=== PATIENT | male | born 1990 ===

== ENCOUNTER 2017-02-21 22:21 | Emergency (ER) | payer OTHER ==
[~2017-02-21] VITALS: Ht 177.8 cm; Wt 81.9 kg
[2017-02-21 22:23] VITALS: TEMP 36.8; Ht 177.8 cm; Wt 81.9 kg
[2017-02-21] MEDS ORDERED: KETOROLAC TROMETHAMINE 30 MG/ML VIAL IV STA (22:38)
[2017-02-21 23:04] LABS: BASO % 0.1 %; BASO ABS # 0.02 K/uL (0-0.2); COMPLETE YES; EOS % 1.7 %; HEMATOCRIT 45.5 % (42-52); IG% 0.3 %; LYMPH % 30.7 %; LYMPH ABS # 4.43 K/uL (1.2-3.4); MEAN CORPUSCULAR HEMOGLOBIN 29.8 pg (25-34); MEAN CORPUSCULAR HGB CONC 34.3 g/dl (32-36); MEAN PLATELET VOLUME 9.7 fL (7.4-10.4); MONO % 8.1 %; NEUT % 59.1 %; PLATELET COUNT 257 K/uL (130-400); RED BLOOD COUNT 5.23 M/uL (4.7-6.1); WHITE BLOOD COUNT 14.45 K/uL (4.8-10.8)
[2017-02-21 23:11] LABS: URINE APPEARANCE CLEAR (CLEAR); URINE BILIRUBIN NEG (NEG); URINE COLOR YELLOW; URINE NITRITE NEG (NEG); URINE SPECIFIC GRAVITY 1.019 (1.000-1.030); UROBILINOGEN NEG (NEG); ZZUR CULT IF INDIC CLEAN CATCH NO
[2017-02-21 23:20] LABS: MANUAL MICROSCOPIC REQUIRED? NO; REVIEW REQ? NO
[2017-02-21 23:21] LABS: BUN/CREATININE RATIO 8.9 (10-20); CALCIUM 9.6 mg/dl (8.5-10.1); CREATININE 1.1 mg/dl (0.60-1.40)
[2017-02-22] MEDS ORDERED: CEFTRIAXONE SOD INJ 250 MG in DEXTROSE 5% 25ML 25 ML IV STA (00:16)
--- NOTE | 2017-02-22 00:16 | EMERGENCY ROOM VISIT NOTE ---
History First contact with patient: 22:27 Chief Complaint: TESTICULAR PAIN Stated Complaint: L TESTICULAR AN LLQ ABD PAIN Nursing Triage Summary: Pt c/o left testicle/groin pain that started at 1400 today denies urinary sx History of Present Illness The patient is a 27 year old male who presents to the Emergency Room with complaints of left testicular pain that radiates to his groin for the past several hours ranging in severity currently 7 out of 10 worse with movement and better with rest. Patient does not feel at risk for STIs. He declines testing. Patient denies penile pain, penile drainage, testicular swelling, rashes, chest pain, dyspnea, back pain, nausea, vomiting, diarrhea. No history of similar symptoms in the past. Patient states he has high blood pressure but he has not been taking his lisinopril. Review of Systems See HPI for pertinent positives & negatives. A total of 10 systems reviewed and were otherwise negative. Past Medical/Surgical History Hypertension Social History Smoking Status: Current Every Day Smoker Drug Use: none Occupation Status: employed, [employer] Current/Historical Medications No Active Prescriptions or Reported Meds Physical Exam Vital Signs Date Time Temp Pulse Resp B/P (MAP) Pulse Ox O2 Delivery O2 Flow Rate FiO2 02/21/17 23:27 82 18 170/102 97 Room Air 02/21/17 22:23 36.8 107 18 177/90 100 Room Air Physical Exam VITALS: Vitals are noted on the nurse's note and reviewed by myself. Vital signs stable. GENERAL: Pleasant male, in no acute distress, nondiaphoretic, well-developed well-nourished. SKIN: Capillary reflex less than 2 seconds. HEENT: Normocephalic. PERRLA. EOMI. Nares patent. Mucous membranes moist. Neck is supple without nuchal rigidity. HEART: Regular rate and rhythm without murmurs gallops or rubs. LUNGS: Clear to auscultation bilaterally without wheezes, rales or rhonchi. No retractions or accessory muscle use. ABDOMEN: Positive bowel sounds x 4. Normal tympanic percussion. Soft, nontender, without masses or organomegaly. Chi sign negative. No guarding or rebound tenderness. No CVA tenderness exam: Left epididymis tender to palpation easily reproducing symptoms, no inguinal lymph node enlargement, no rashes, no penile abnormalities. Other testicle normal. Remote Sensing Analyst present. MUSCULOSKELETAL: No gross musculoskeletal defects. NEURO: Patient was alert and oriented to person place and time. Normal sensation to light and sharp touch. No focal neurological deficits. Medical Decision & Procedures Laboratory Results 02/21/17 22:45 Red Blood Count 5.23, Mean Corpuscular Volume 87.0, Mean Corpuscular Hemoglobin 29.8, Mean Corpuscular Hemoglobin Concent 34.3, Mean Platelet Volume 9.7, Neutrophils (%) (Auto) 59.1, Lymphocytes (%) (Auto) 30.7, Monocytes (%) (Auto) 8.1, Eosinophils (%) (Auto) 1.7, Basophils (%) (Auto) 0.1, Neutrophils # (Auto) 8.55, Lymphocytes # (Auto) 4.43, Monocytes # (Auto) 1.17, Eosinophils # (Auto) 0.24, Basophils # (Auto) 0.02 02/21/17 22:45 Test 02/21/17 22:45 02/21/17 22:50 White Blood Count 14.45 K/uL (4.8-10.8) Red Blood Count 5.23 M/uL (4.7-6.1) Hemoglobin 15.6 g/dL (14.0-18.0) Hematocrit 45.5 % (42-52) Mean Corpuscular Volume 87.0 fL (80-100) Mean Corpuscular Hemoglobin 29.8 pg (25-34) Mean Corpuscular Hemoglobin Concent 34.3 g/dl (32-36) Platelet Count 257 K/uL (130-400) Mean Platelet Volume 9.7 fL (7.4-10.4) Neutrophils (%) (Auto) 59.1 % Lymphocytes (%) (Auto) 30.7 % Monocytes (%) (Auto) 8.1 % Eosinophils (%) (Auto) 1.7 % Basophils (%) (Auto) 0.1 % Neutrophils # (Auto) 8.55 K/uL (1.4-6.5) Lymphocytes # (Auto) 4.43 K/uL (1.2-3.4) Monocytes # (Auto) 1.17 K/uL (0.11-0.59) Eosinophils # (Auto) 0.24 K/uL (0-0.5) Basophils # (Auto) 0.02 K/uL (0-0.2) RDW Standard Deviation 42.6 fL (36.4-46.3) RDW Coefficient of Variation 13.4 % (11.5-14.5) Immature Granulocyte % (Auto) 0.3 % Immature Granulocyte # (Auto) 0.04 K/uL (0.00-0.02) Anion Gap 8.0 mmol/L (3-11) Est Creatinine Clear Calc Drug Dose 104.2 ml/min Estimated GFR () 106.1 Estimated GFR (Non- 91.5 BUN/Creatinine Ratio 8.9 (10-20) Calcium Level 9.6 mg/dl (8.5-10.1) Urine Color YELLOW Urine Appearance CLEAR (CLEAR) Urine pH 7.0 (4.5-7.5) Urine Specific Hodges 1.019 (1.000-1.030) Urine Protein NEG (NEG) Urine Glucose (UA) NEG (NEG) Urine Ketones NEG (NEG) Urine Occult Blood NEG (NEG) Urine Nitrite NEG (NEG) Urine Bilirubin NEG (NEG) Urine Urobilinogen NEG (NEG) Urine Leukocyte Esterase NEG (NEG) Medications Administered Medications (Trade) Dose Ordered Sig/Hesham Route Start Time Stop Time Status Last Admin Dose Admin Ketorolac Tromethamine (Toradol Inj) 30 mg NOW STAT IV 02/21/17 22:38 02/21/17 22:39 DC 02/21/17 22:38 30 MG ED Course Prior records/ancillary studies reviewed. Triage Nursing notes reviewed. The patient's history was concerning for testicular pain. Differential diagnosis: Etiologies such as epididymitis, torsion, spermatocele, varicocele, UTI, infections, renal colic, as well as others were entertained. Physical examination findings: As above. ER treatment provided: Toradol, scrotal support On reassessment the patient felt better. Diagnostics interpreted by me: The labs revealed leukocytosis. Negative urine Imaging studies: Exam and history seem consistent with epididymitis. This could be early epididymitis. Patient is exquisite tender on his epididymis. I did opt to start the patient on antibiotics. Patient was neurovascularly and neurologically intact. No signs of torsion. He refuses STI testing. He does not feel at risk. Patient was advised to take medications as directed and to follow-up urology in a few days or here in the ER sooner for fevers, severe pain , vomiting, worsening signs or symptoms or as needed. Patient did not have an acute abdomen on exam. He is well-appearing.By the evaluation outlined above emergent etiologies such as torsion, spermatocele, varicocele, UTI, renal colic as well as others were deemed relatively unlikely. The pt informed about the findings as listed above. All questions were answered and pleased with the treatment. Return instructions were outlined and the patient was discharged in stable condition. Outpatient prescription management: Doxycycline Referral: The patient was referred back to their primary care physician and urology for follow-up in 2 to 3 days for a recheck of the current condition. Case reviewed with my attending Medical Decision as above Medication Reconcilliation Current Medication List: was personally reviewed by me Blood Pressure Screening Patient's blood pressure: Elevated blood pressure Blood pressure disposition: Referred to PCP Impression Primary Impression: Epididymitis, right Additional Impression: Epididymal cyst Departure Information Dispostion Home / Self-Care Condition GOOD Prescriptions No Active Prescriptions or Reported Meds Referrals No Doctor, Assigned (PCP) Patient Instructions My [facility] Additional Instructions Doxycycline 100mg: Take one pill twice daily for 10 days for your infection. Take with food, but avoid dairy. Avoid prolonged sun exposure since this medication makes you temporarily more susceptible to sunburns. All antibiotics can cause diarrhea. If this occurs and you feel worse or it does not resolve in 1-2 days follow up with your doctor or return to the Emergency Department as this could be signs of serious underlying problems. Any medication can cause an allergic reaction, stop the pills immediately and return to the ER for rash, hives, breathing difficulties, or swelling. Acetaminophen(Tylenol) may be used for fever or pain. Use 1000mg every six hours as needed. Avoid using more than 3000mg in a 24 hour period. AND/OR Ibuprofen(Motrin, Advil) may be used for fever or pain. Use 600mg every six hours as needed. Take with food. Avoid using more than 2400mg in a 24 hour period. Do not use 2400mg per day for more than three consecutive days without physician direction. Prolonged inappropriate use can lead to stomach upset or ulcers. Wear scrotal support for comfort. Continue current medications. Return to the ER for testicular pain, penile pain, chest pain, difficulty breathing, persistent fevers, vomiting, worsening of your condition, or as needed. Follow-up with urology in 2-3 days. Call for an appointment. Problem Qualifiers
[2017-02-22] MEDS ORDERED: DOXYCYCLINE HYCLATE 100 MG CAP PO ONE (00:30)
[2017-02-22] MEDS ORDERED: DOXY100C2 PO (00:36)
[2017-02-22 01:00] VITALS: BP 170/105; PULSE 87; O2SAT 98
--- NOTE | 2017-02-22 05:48 | DIAGNOSTIC IMAGING REPORT ---
(TESTICULAR) SCROTUM-CONT HISTORY: Pain left test pain, ? epididymo COMPARISON: None. FINDINGS: Right testis: Maximum dimension 4.5 cm. Normal vascular flow. 3 mm epididymal cyst. Left testis: Maximum dimension 4.4 cm. Normal vascular flow. 3 mm epididymal cyst. IMPRESSION: Normal testicular ultrasound. Small bilateral epididymal cysts. The above report was generated using voice recognition software. It may contain grammatical, syntax or spelling errors. Electronically signed by: Ty Garcia M.D. 02/22/2017 5:46 AM Dictated Date/Time: 02/22/2017 5:45 AM
== END 2017-02-22 01:01 | disposition home or self-care (01) ==
LOC: C.EDB 22:22 → C.EDC 02-22 01:01
DX: N45.1 Epididymitis (principal); N50.3 Cyst of epididymis; I10 Essential (primary) hypertension; F17.210 Nicotine dependence, cigarettes, uncomplicated